=== PATIENT | female | born 1980 | race Caucasian/White ===

== ENCOUNTER → 2016-03-18 | Outpatient (CLI) | payer BC ==
[~2016-03-18] MED LIST: LEVO75TA PO; PRENTAB26 PO
[2016-03-18 17:59] LABS: GTGD 50 Grams
[2016-03-18 18:21] LABS: THYROID STIMULATING HORMONE 1.13 uIu/ml (0.300-4.500)
== END | disposition home or self-care (01) ==
LOC: C.LAB1850 15:37
PROVIDERS: ATTEND Obstetrics & Gynecology
DX: O99.280 Endocrine, nutritional and metabolic diseases complicating pregnancy, unspecified trimester (principal); O09.512 Supervision of elderly primigravida, second trimester

== ENCOUNTER → 2016-04-18 | Outpatient (CLI) | payer BC ==
[2016-04-18 18:42] LABS: THYROID STIMULATING HORMONE 0.873 uIu/ml (0.300-4.500)
== END | disposition home or self-care (01) ==
LOC: C.LABPVFM 15:54
PROVIDERS: ATTEND Internal Medicine Endocrinology, Diabetes & Metabolism
DX: O99.280 Endocrine, nutritional and metabolic diseases complicating pregnancy, unspecified trimester (principal)

== ENCOUNTER → 2016-04-29 | Outpatient (CLI) | payer BC ==
[2016-04-29 17:21] LABS: HEMATOCRIT 34.1 % (37-47)
[2016-04-29 18:02] LABS: URINE APPEARANCE CLEAR (CLEAR); URINE BILIRUBIN NEG (NEG); URINE COLOR YELLOW; URINE NITRITE NEG (NEG); URINE PH 6.5 (4.5-7.5); UROBILINOGEN NEG (NEG)
[2016-04-29 18:08] LABS: MANUAL MICROSCOPIC REQUIRED? NO; REVIEW REQ? NO
[2016-04-29 19:37] LABS: GTGD 50 Grams
== END | disposition home or self-care (01) ==
LOC: C.LAB1850 15:31
PROVIDERS: ATTEND Obstetrics & Gynecology
DX: O09.513 Supervision of elderly primigravida, third trimester (principal)

== ENCOUNTER → 2016-05-15 | Outpatient (CLI) | payer BC ==
[2016-05-15 17:15] LABS: THYROID STIMULATING HORMONE 1.12 uIu/ml (0.300-4.500)
== END | disposition home or self-care (01) ==
LOC: C.LAB1850 16:02
PROVIDERS: ATTEND Physician Assistant
DX: O99.280 Endocrine, nutritional and metabolic diseases complicating pregnancy, unspecified trimester (principal)

== ENCOUNTER → 2016-06-14 | Outpatient (CLI) | payer BC ==
[2016-06-14 17:34] LABS: THYROID STIMULATING HORMONE 1.3 uIu/ml (0.300-4.500)
== END | disposition home or self-care (01) ==
LOC: C.LAB1850 15:50
PROVIDERS: ATTEND Physician Assistant
DX: O99.280 Endocrine, nutritional and metabolic diseases complicating pregnancy, unspecified trimester (principal); Z3A.00 Weeks of gestation of pregnancy not specified

== ENCOUNTER 2016-07-12 17:02 | Outpatient (CLI) | payer BC ==
[~2016-07-12] VITALS: Ht 167.6 cm; Wt 93.0 kg
[2016-07-12] MEDS ORDERED: PRENTAB26 PO (17:46)
[2016-07-12] MEDS ORDERED: LEVO75TA PO (17:46)
[2016-07-12 17:47] VITALS: Ht 167.6 cm; Wt 93.0 kg
== END 2016-07-12 18:17 | disposition home or self-care (01) ==
LOC: C.OPB 17:02 → C.LD 17:02 → C.OPB 18:17
PROVIDERS: ATTEND Obstetrics & Gynecology
DX: O16.3 Unspecified maternal hypertension, third trimester (principal); Z3A.38 38 weeks gestation of pregnancy

== ENCOUNTER 2016-07-16 16:52 | Outpatient (CLI) | payer BC ==
[~2016-07-16] VITALS: Ht 165.1 cm; Wt 93.0 kg
[2016-07-16 18:43] VITALS: Ht 165.1 cm; Wt 93.0 kg
== END 2016-07-16 19:05 | disposition home or self-care (01) ==
LOC: C.OPB 16:52 → C.LD 16:54 → C.OPB 19:05
PROVIDERS: ATTEND Obstetrics & Gynecology
DX: O16.3 Unspecified maternal hypertension, third trimester (principal); O09.513 Supervision of elderly primigravida, third trimester; Z3A.38 38 weeks gestation of pregnancy

== ENCOUNTER 2016-07-17 07:50 | Inpatient (IN) | payer BC ==
[~2016-07-17] VITALS: Ht 165.1 cm; Wt 93.0 kg
[2016-07-17] MEDS ORDERED: LACTATED RINGER'S 1000ML 1,000 ML IV SCH (08:12)
[2016-07-17] MEDS ORDERED: LACTATED RINGER'S 1000ML 1,000 ML IV PRN (08:12)
[2016-07-17] MEDS ORDERED: LACTATED RINGER'S 1000ML 500 ML IV PRN (08:12)
[2016-07-17] MEDS ORDERED: OXYTOCIN 30 UNITS/500ML NSS IV PRN ×2 (08:15→17:15)
--- NOTE | 2016-07-17 08:33 | Medical Student: [facility] ---
Med Student History & Physical Date of Service July 17, 2016. Chief Complaint Induction History of Present Illness Source: patient Pt is a 35F who presents for induction of labor due to gestational HTN. She is currently 38-4 weeks GA with REINIER 07/27/16 by LMP. Her has only been complicated with GH and AMA. After having a high BP of 142/92 and 142/98 and trace edema without other sx during OB clinic on 07/16/16, pt was admitted to L&D the following evening to have a nickerson bulb inserted at 5:00PM. The bulb fell out this morning. Currently the patient is not experiencing contractions, but feels mild irritability of the uterus. She has not experienced loss of fluid and had some spotting due to the procedure last night. Blood type: A+, rubella: immune, GBS: +, VRDL/RPR: nonreactive, HBV: neg OB History Patient has no hx of RECRUITER History Menarche: 12, LMP: 10/20/16 Last pap: 09/2014 WNL No hx of abnormal pap Past Medical History Hypothyroidism currently controlled on levothyroxine Past Surgical History [place] teeth and ankle surgery Family History Hx of hypercholesterolemia, breast cancer (maternal great aunt). Social History Smoking Status: Never Smoker Smokeless Tobacco Use: No Alcohol Use: none Drug Use: none Marital Status: Housing status: lives with significant other Allergies Coded Allergies: No Known Allergies (Unverified , 07/12/16) Home Medications Levothyroxine Sodium (Synthroid), 75 MCG PO DAILY Multivit/Min/Iron/Fol Ac/Pren ( Vitamin), 1 TAB PO DAILY Review of Systems Constitutional: No chills, No fever, No sweats Respiratory: No cough, No shortness of breath, No wheezing Cardiovascular: No chest pain, No edema, No palpitations Abdomen: No nausea, No vomiting Genitourinary - Female: No dysuria, No urinary frequency Pt did note a minor headache, pain 1-2/10. Thinks it began last night in the hospital when her "blood pressure dropped a bit". Physical Exam Vital Signs: BP: 130/84, HR: 112, RR: 18 General Appearance: WD/WN, no apparent distress Head: normocephalic, atraumatic Respiratory/Chest: chest non-tender, lungs clear, normal breath sounds Cardiovascular: regular rate, rhythm, no gallop, no murmur Abdomen / GI: non tender Extremities: normal inspection, no calf tenderness, + pedal edema (trace) Skin: normal color, warm/dry Cervix exam as performed by Dr. De La Cruz at 8AM was 2-3 cm, 80% effaced, station: -2. Monitoring External Monitor: FHR: 155, moderate variability, accels present, no decels, category 1. Tocodynamometer: Irregular Assessment and Plan A: Pt is a 35F 38-4 weeks GA who presents for induction of labor who is currently not in acute distress. heart tracing category 1, BP currently at 130/84 with trace pedal edema. P: Plan is to continue monitoring with external heart monitor, advise patient with regards to pain management during delivery. Will administer Pitocin to begin regular contractions and will watch for SROM, and if needed perform AROM.
[2016-07-17 08:44] VITALS: Ht 165.1 cm; Wt 93.0 kg
[2016-07-17 08:49] LABS: MEAN CELL VOLUME 84.3 fL (80-100); MEAN CORPUSCULAR HEMOGLOBIN 27.4 pg (25-34); MEAN CORPUSCULAR HGB CONC 32.5 g/dl (32-36); MEAN PLATELET VOLUME 10.5 fL (7.4-10.4); PLATELET COUNT 236 K/uL (130-400); RED BLOOD COUNT 4.27 M/uL (4.2-5.4); WHITE BLOOD COUNT 7.74 K/uL (4.8-10.8)
[2016-07-17] MEDS ORDERED: PENICILLIN G POTASSIUM IV 3 MU in DEXTROSE 5% 100ML 100 ML IV PRN (09:00)
[2016-07-17] MEDS ORDERED: PENICILLIN G POTASSIUM IV 6 MU in DEXTROSE 5% 250ML 250 ML IV ONE (09:00)
[2016-07-17 09:09] LABS: ALT/SGPT 21 U/L (12-78); AST/SGOT 19 U/L (15-37)
[2016-07-17 09:11] LABS: ALKALINE PHOSPHATASE 165 U/L (45-117)
[2016-07-17] MEDS ORDERED: ONDANSETRON INJ 2 MG/ML 2 ML VIAL IV STA (13:18)
[2016-07-17] MEDS ORDERED: OXYCODONE/ACETAMINOPHEN 5-325 TAB PO PRN (17:15)
[2016-07-17] MEDS ORDERED: HYDROCORTISONE ACETATE 25 MG SUPP PR PRN (17:15)
[2016-07-17] MEDS ORDERED: BENZOCAINE 20% AER SPR 82.5 GM CAN EXT PRN (17:15)
[2016-07-17] MEDS ORDERED: LANOLIN OINT EXT PRN ×2 (17:15)
[2016-07-17] MEDS ORDERED: SUPERCREAM 0.870 % 15GM JAR EXT PRN (17:15)
--- NOTE | 2016-07-17 18:47 | Medical Student: [facility] ---
Medical Student Delivery Note Pt is a 35 yo EDC 07/27/16 for an induction due to GH and AMA. Pt had a nickerson bulb placed on 07/16/16 which fell out on 07/17/16. Blood type: A+, rubella: immune, GBS: +, VRDL/RPR: nonreactive, HBV: neg. Cervix upon admission at 8AM was 2-3 cm, 80% effaced, station: -2, performed by Dr. De La Cruz. heart tracing was category 1. Pt declined epidural, and Pitocin was started. Viable baby F, 8,9. Cord clamped and cut and cord blood samples obtained. Placenta delivered spontaneously. Inspection of perineum showed midline second degree laceration that was repaired with one 3-0 Vicryl suture. EBL 300cc. Sponge and need count correct.
[2016-07-17 19:40] VITALS: BP 132/77; PULSE 89; TEMP 37.5; O2SAT 96
--- NOTE | 2016-07-17 20:13 | DELIVERY SUMMARY ---
DATE OF OPERATION: 07/17/2016 PREDELIVERY DIAGNOSES: 1. A 35-year-old G1, P0 at 38 weeks 4 days. 2. Induction of labor secondary to gestational hypertension. 3. Hypothyroidism in . 4. Group B strep positive. 5. Advanced maternal age. 6. Hyperinsulinism. POSTDELIVERY DIAGNOSES: Same. PROCEDURE: Spontaneous vaginal delivery and repair of second degree peroneal laceration. FINDINGS: Viable female with Apgars 8 and 9, weight pending and second degree peroneal laceration. SURGEON: Dr. Arcos. ANESTHESIA: None. DESCRIPTION OF DELIVERY: The patient progressed to complete without anesthesia. She then began to push. She spontaneously vaginally delivered a viable female from the left occiput anterior position. The head delivered followed by the anterior then the posterior shoulder followed by the body. Nuchal cord x1 was noted and delivered through. The baby was placed on mother's abdomen and a spontaneous cry was heard. The cord was doubly clamped and cut. A cord segment was obtained for cord gases. Cord blood was obtained. The placenta was spontaneously delivered intact with a 3-vessel cord. The uterus and vagina were swept of all clots and debris. The bladder was drained with a red rubber catheter for a small amount of urine. The Pitocin was started and the uterus became firm. The cervix, vagina and perineum were inspected and a second degree perineal laceration was noted. Rectal exam was performed to ensure no laceration in the rectum and the anal sphincter was intact. Lidocaine 1% was infused 10 mL in the laceration for pain control and the laceration was repaired in standard fashion with 3-0 Vicryl on a CT1 needle and a second rectal exam was performed and no stitches were in the rectal mucosa. Excellent hemostasis was observed. All instrument, needle and sponge counts were correct x2 at the conclusion of the delivery. The patient and the baby tolerated the delivery well. I attest to the content of the Intraoperative Record and any orders documented therein. Any exceptio ns are noted below.
[2016-07-17] MEDS: DOCUSATE SODIUM 100 MG CAP PO SCH (20:15)
[2016-07-17] MEDS: IBUPROFEN 600 MG TAB PO PRN (21:42)
[2016-07-18 00:30] VITALS: BP 99/55; PULSE 89; TEMP 37.1; O2SAT 96
[2016-07-18 04:45] VITALS: BP 126/77; PULSE 71; TEMP 37.1; O2SAT 97
[2016-07-18] MEDS: IBUPROFEN 600 MG TAB PO PRN ×3 (05:00→19:42)
--- NOTE | 2016-07-18 06:50 | Progress Note ---
Subjective July 18, 2016. Subjective conversation w/ patient, physical exam, lab review Ambulation: ambulating normally Voiding: no voiding problems Passing Gas: No Diet Tolerance: Regular Diet Lochia: Moderate Feeding Type: Breast Feeding Pain: cramp, improves with med Comment: Patient was seen at the bedside. No acute event overnight. Review of Systems Constitutional: No fever Respiratory: No cough, No shortness of breath Cardiac: No chest pain Breast: No breast lump Abdomen: No nausea, No pain, No vomiting Female : No dysuria, No urinary frequency Denies headache Objective Vital Signs Date Time Temp Pulse Resp B/P Pulse Ox O2 Delivery O2 Flow Rate FiO2 07/18/16 04:45 37.1 71 18 126/77 97 Room Air 07/18/16 00:30 Room Air 07/18/16 00:30 37.1 89 18 99/55 96 Room Air 07/17/16 19:40 Room Air 07/17/16 19:40 37.5 89 18 132/77 96 Room Air Physical Exam General Appearance: WELL-APPEARING, WD/WN, NO APPARENT DISTRESS Respiratory/Chest: chest non-tender, lungs clear, normal breath sounds, no respiratory distress Cardiovascular: regular rate, rhythm Abdomen: normal bowel sounds, non tender, soft Fundus: Firm, Relation to Umbilicus (about 1-2cm below U) Extremities: non-tender, no calf tenderness, + pedal edema (trace b/l lower ext ) Laboratory Results Last 24 Hours Test 07/17/16 08:40 07/18/16 06:33 White Blood Count 7.74 K/uL Red Blood Count 4.27 M/uL Hemoglobin 11.7 g/dL Hematocrit 36.0 % Mean Corpuscular Volume 84.3 fL Mean Corpuscular Hemoglobin 27.4 pg Mean Corpuscular Hemoglobin Concent 32.5 g/dl RDW Standard Deviation 42.5 fL RDW Coefficient of Variation 13.9 % Platelet Count 236 K/uL Mean Platelet Volume 10.5 fL Creatinine 0.80 mg/dl Est Creatinine Clear Calc Drug Dose 110.6 ml/min Estimated GFR () 110.7 Estimated GFR (Non- 95.5 Total Bilirubin 0.5 mg/dl Direct Bilirubin < 0.1 mg/dl Aspartate Amino Transf (AST/SGOT) 19 U/L Alanine Aminotransferase (ALT/SGPT) 21 U/L Alkaline Phosphatase 165 U/L Total Protein 6.2 gm/dl Albumin 2.6 gm/dl Medications Current Inpatient Medications Medications (Trade) Dose Ordered Sig/Tae Route Start Time Stop Time Status Last Admin Dose Admin Lactated Ringer's 1,000 ml @ 125 mls/hr Q8H IV 07/17/16 08:12 07/19/16 08:11 07/17/16 09:06 125 MLS/HR Lactated Ringer's (Lr 1000ml) 500 ml @ 999 mls/hr Q31M PRN IV 07/17/16 08:12 08/16/16 08:11 Levothyroxine Sodium (Synthroid Tab) 75 mcg DAILYBB PO 07/18/16 07:30 08/17/16 07:29 Oxytocin (Pitocin IV) 30 units UD PRN IV 07/17/16 17:15 08/16/16 17:14 Benzocaine (Dermoplast Aero Spr) 1 appln PRN PRN EXT 07/17/16 17:15 08/16/16 17:14 Cocaine HCl (Supercream 0.870% Cr) BID PRN EXT 07/17/16 17:15 07/31/16 17:14 07/17/16 20:14 15 GM Hydrocortisone Acetate (Anusol Hc Supp) [address] 07/17/16 17:15 08/16/16 17:14 Lanolin (Lanolin Oint) PRN PRN EXT 07/17/16 17:15 08/16/16 17:14 07/18/16 05:00 1 TUBE Ibuprofen (Motrin Tab) 600 mg Q4H PRN PO 07/17/16 17:15 08/16/16 17:14 07/18/16 05:00 600 MG Oxycodone/ Acetaminophen (Percocet 5-325mg Tab) 1 tab Q4H PRN PO 07/17/16 17:15 07/31/16 17:14 Bisacodyl (Dulcolax Tab) 5 mg 20 PO 07/18/16 20:00 07/18/16 20:01 Docusate Sodium (coLACE CAP) 100 mg BID PO 07/17/16 20:00 08/16/16 19:59 07/17/16 20:15 100 MG Assessment and Plan Post- Day#: 1 Continue Routine Care: A/P: This is a 35 y/o female, , s/p normal vaginal delivery. She is ambulating and clinically stable. Plan: - Vitals signs are reviewed and WNL (Tmax 37.5 ) - Last Hgb is 11.7 - Blood type A+, GBS positive, Rubella Immune - Routine care - Encourage ambulation, monitor and control pain with medication as needed , continue with regular diet as tolerated and monitor lochia - Stool softeners and sitz bath recommended - Encourage breast feeding and educate about breast feeding Resident Physician Supervision Note: I was present with Dr. Armijo during the history and exam. I discussed the case with the resident and agree with the findings and plan as documented in the note. Any exceptions or clarifications are listed here: PPD#1 doing well. Continue care. Documented By: Deepa Arcos
[2016-07-18 06:53] LABS: HEMATOCRIT 30.7 % (37-47)
--- NOTE | 2016-07-18 06:54 | Medical Student: [facility] ---
Med Student [employer] Progress Nt Date of Service July 18, 2016. Subjective conversation w/ patient, physical exam, chart review Ambulation: ambulating normally Voiding: no voiding problems Passing Gas: No Diet Tolerance: Regular Diet Lochia: Moderate Feeding Type: Breast Feeding Pain: Improves with medication Notes: Pt is a 35 yo F, , PPD s/p NVD Blood type A+, GBS+, Rubella immune Review of Systems Constitutional: No chills, No fever Respiratory: No cough, No shortness of breath Cardiac: No chest pain, No palpitations Abdomen: No nausea, No vomiting Female : No dysuria, No urinary frequency Objective Vital Signs Date Time Temp Pulse Resp B/P Pulse Ox O2 Delivery O2 Flow Rate FiO2 07/18/16 04:45 37.1 71 18 126/77 97 Room Air 07/18/16 00:30 Room Air 07/18/16 00:30 37.1 89 18 99/55 96 Room Air 07/17/16 19:40 Room Air 07/17/16 19:40 37.5 89 18 132/77 96 Room Air Physical Exam General Appearance: WELL-APPEARING, WD/WN Respiratory/Chest: chest non-tender, lungs clear, normal breath sounds Cardiovascular: regular rate, rhythm, no gallop, no murmur Abdomen: non tender, soft Fundus: Firm, Relation to Umbilicus (1 cm below) Extremities: non-tender, + pedal edema (trace) Laboratory Results Last 24 Hours Test 07/17/16 08:40 07/18/16 06:33 White Blood Count 7.74 K/uL Red Blood Count 4.27 M/uL Hemoglobin 11.7 g/dL Hematocrit 36.0 % Mean Corpuscular Volume 84.3 fL Mean Corpuscular Hemoglobin 27.4 pg Mean Corpuscular Hemoglobin Concent 32.5 g/dl RDW Standard Deviation 42.5 fL RDW Coefficient of Variation 13.9 % Platelet Count 236 K/uL Mean Platelet Volume 10.5 fL Creatinine 0.80 mg/dl Est Creatinine Clear Calc Drug Dose 110.6 ml/min Estimated GFR () 110.7 Estimated GFR (Non- 95.5 Total Bilirubin 0.5 mg/dl Direct Bilirubin < 0.1 mg/dl Aspartate Amino Transf (AST/SGOT) 19 U/L Alanine Aminotransferase (ALT/SGPT) 21 U/L Alkaline Phosphatase 165 U/L Total Protein 6.2 gm/dl Albumin 2.6 gm/dl Assessment and Plan Post- Day Number: 1 Continue Routine Care: Pt is a 35 yo F , PPD #1 s/p NVD doing well We want to do routine care, encourage ambulatio nand breast feeding and continue pain control with rx.
[2016-07-18 07:50] VITALS: BP 122/79; PULSE 80; TEMP 36.5; O2SAT 97
[2016-07-18] MEDS: LEVOTHYROXINE 75 MCG TAB PO SCH (08:18)
[2016-07-18] MEDS: DOCUSATE SODIUM 100 MG CAP PO SCH ×2 (08:18→19:42)
[2016-07-18 11:40] VITALS: BP 124/74; PULSE 79; TEMP 36.6; O2SAT 98
[2016-07-18 15:30] VITALS: BP 131/74; PULSE 87; TEMP 36.5
[2016-07-18] MEDS ORDERED: BISACODYL 5 MG TABEC PO SCH (20:00)
[2016-07-18 23:30] VITALS: BP 117/76; PULSE 89; TEMP 37.2
--- NOTE | 2016-07-19 06:23 | Discharge Instructions ---
Discharge Instructions Date of Service July 18, 2016. Admission Reason for Admission: Induction Discharge Discharge Diagnosis / Problem: s/p vaginal delivery Discharge Goals Goal(s): Routine recovery after delivery Medications Continue Dispensed Medications: supercream, dermaplast, tucks, lansinoh Activity Recommendations Activity Limitations: as noted below . Instructions / Follow-Up Instructions / Follow-Up ACTIVITY RECOMMENDATIONS: * Gradual return to full activity over the next 2-3 weeks. * No lifting - nothing heavier than baby over the next 2-3 weeks. * Do not engage in vigorous exercise, sexual activity or sports until cleared by your physician. * Do not drive or operate any motorized equipment until cleared by your physician. * You may shower/bathe daily. MEDICATIONS: For discomfort or pain, you may use Acetaminophen (Tylenol), Ibuprofen (Advil), or Naproxen (Aleve) following the package directions. For constipation you may use Colace following the package directions. BREAST CARE: If you are not breast feeding: * Wear a supportive bra 24 hours a day for one to two weeks. * Avoid stimulating your breasts and nipples as much as possible during the first few weeks after delivery. * When taking a shower, have the warm water hit your back, not breasts. * When your breasts feel full, apply ice packs. Usually three to four times a day helps ease the discomfort. * Take a mild pain medication (Tylenol / Motrin) when you are uncomfortable. If breast feeding: * Use breast milk to lubricate nipples. Lansinoh cream may be used for sore nipples. You do not need to remove cream prior to breast feeding. If using a different brand of cream, check the label for directions regarding removal of cream prior to nursing. * Wear a supportive bra. * If having problems with breasts or breast feeding, call a instructional systems design consultant or your health care provider. EPISIOTOMY CARE: After delivery, if you have an episiotomy (stitches), the following steps will ease discomfort and aid healing. * For the first 24 hours after delivery, place ice packs next to your episiotomy to help reduce swelling. * After the first 24 hour-period, sitz baths, either portable or in the tub, are suggested. A shower with a shower arm sprayed over the episiotomy may be comforting. * Tiana care should be done after each voiding and bowel movement. Squirt warm water from a plastic bottle over the perineum (region of the body between the anus and urinary opening) and pat dry. * Use Dermoplast to ease discomfort. Shake container. [place] directly over the episiotomy. Place a Tucks on a clean sanitary pad next to your episiotomy. SPECIAL CARE INSTRUCTIONS: When you are discharged from the hospital, it is important for you to follow the instructions listed below: * During the first week at home, you should be able to care for yourself and your baby. In addition, the usual light household activities are encouraged. * Limit your activities to the way you feel. Do not try to clean the house or move furniture. Be sensible. * If you actively engage in sports and have done so up until the time of your delivery, you may resume these activities as soon as you feel able. This may take up to one month or even longer. Use good judgment. * Continue to take your vitamins for at least six weeks after the of your baby. * Your diet need not be limited unless you were on a special diet before your delivery. Breast-feeding mothers need around 2500 calories per day and at least 64-80 ounces of fluid per day (8 to 10 glasses). * You should eat foods from the four major food groups. Crash diets or fad diets are to be avoided. Eating lean meats, fresh fruits and vegetables, low-fat dairy products, high fiber foods and a regular exercise program, will help you get back to your pre- weight without putting your health at risk. * Constipation is sometimes a problem after delivery. Take a mild laxative as needed. If breast feeding, Milk of Magnesia is acceptable to use. You may use a suppository or Fleets enema if no episiotomy. * A daily shower or tub bath is suggested. Be sure to thoroughly and gently dry the perineum. * A bloody vaginal discharge will usually continue until around four weeks post . A small amount of bleeding may continue for as long as six weeks. Vaginal discharge changes from the bright red bleeding after delivery to pink then brownish and finally yellowish-pink before becoming white and disappearing. * Bleeding may increase with activity. Your first period may come in 4-8 weeks. If you are breast feeding, your period may be delayed even longer. * [place] (sex) can begin whenever both you and your partner feel comfortable and do not have any form of genital infection. It is recommended that you wait at least six weeks for internal and external healing to occur. If you have questions, please talk to your health care practitioner. A condom should be used to prevent infection and . * Foreplay, gentle intercourse and lubrication is very important the first several times to prevent pain. A water-based lubricant such as K-Y jelly or Astroglide may be used. * If you have RH negative blood and your baby is RH positive, you will receive RHOGAM by injection prior to discharge. The nurse will give you a card to keep with you that has the date and place that you received RHOGAM after delivery. * During your care, you had a Rubella screen done to check for the presence of rubella antibodies in your blood. If your test was negative, you will receive a Rubella vaccine prior to discharge. This vaccine may cause a fever, soreness at the injection site and flu-like symptoms. If these symptoms persist, notify your health care practitioner. is not advised for one month after a Rubella vaccine. * Verbalizes understanding of car seat law as reviewed with patient nursing. * Car Seat hand-out given and reviewed with patient by nursing. * Shaken baby information reviewed with patient by nursing. Call you doctor if: * Heavy bleeding (saturating several pads an hour) or passing clots the size of your fist. * A fever >101 degrees F (38.3 degrees C) on two occasions four hours apart and /or chills. * Unusual pain in the pelvic or vaginal areas. * "Baby Blues" lasting longer than two weeks. If you have any questions or concerns, call your health care practitioner at . FOLLOW UP VISIT: * Please call the office at to schedule a 6 week examination. It is important you keep this appointment. It is important for you to make arrangements for either yearly or twice yearly check-ups thereafter. Current Hospital Diet Patient's current hospital diet: Regular OB Diet Discharge Diet Recommended Diet: Regular Diet Pending Studies Studies pending at discharge: no Medical Emergencies . Who to Call and When: Medical Emergencies: If at any time you feel your situation is an emergency, please call 911 immediately. . Non-Emergent Contact Non-Emergency issues call your: Russian Language Professor Call Non-Emergent contact if: you have a fever, temperature is above 101 . . "Provider Documentation" section prepared by Zay Armijo. . VTE Core Measure Inpt VTE Proph given/why not?: Treatment not indicated
--- NOTE | 2016-07-19 06:23 | Progress Note ---
Subjective July 19, 2016. Subjective conversation w/ patient, physical exam, lab review Ambulation: ambulating normally Voiding: no voiding problems Passing Gas: Yes Diet Tolerance: Regular Diet Lochia: Small Feeding Type: Breast Feeding Pain: 2/10, improves with med Comment: Patient was seen at the bedside. No acute event overnight. Review of Systems Constitutional: No fever Respiratory: No cough, No shortness of breath Cardiac: No chest pain Breast: No breast lump Abdomen: No nausea, No pain, No vomiting Female : No dysuria, No urinary frequency Patient was seen at the bedside. No acute event overnight. Objective Vital Signs Date Time Temp Pulse Resp B/P Pulse Ox O2 Delivery O2 Flow Rate FiO2 07/18/16 23:30 37.2 89 18 117/76 07/18/16 23:30 Room Air 07/18/16 15:30 Room Air 07/18/16 15:30 36.5 87 20 131/74 Room Air 07/18/16 11:40 36.6 79 16 124/74 98 Room Air 07/18/16 07:50 36.5 80 16 122/79 97 Room Air 07/18/16 07:50 Room Air Physical Exam General Appearance: WELL-APPEARING, WD/WN, NO APPARENT DISTRESS Respiratory/Chest: chest non-tender, lungs clear, normal breath sounds, no respiratory distress Cardiovascular: regular rate, rhythm Abdomen: normal bowel sounds, non tender, soft Fundus: Firm, Relation to Umbilicus (about 1cm below U) Extremities: non-tender, no pedal edema, no calf tenderness Laboratory Results Last 24 Hours Test 07/18/16 06:33 Hemoglobin 10.1 g/dL Hematocrit 30.7 % Medications Current Inpatient Medications Medications (Trade) Dose Ordered Sig/Tae Route Start Time Stop Time Status Last Admin Dose Admin Lactated Ringer's 1,000 ml @ 125 mls/hr Q8H IV 07/17/16 08:12 07/19/16 08:11 07/17/16 09:06 125 MLS/HR Lactated Ringer's (Lr 1000ml) 500 ml @ 999 mls/hr Q31M PRN IV 07/17/16 08:12 08/16/16 08:11 Levothyroxine Sodium (Synthroid Tab) 75 mcg DAILYBB PO 07/18/16 07:30 08/17/16 07:29 07/18/16 08:18 75 MCG Oxytocin (Pitocin IV) 30 units UD PRN IV 07/17/16 17:15 08/16/16 17:14 Benzocaine (Dermoplast Aero Spr) 1 appln PRN PRN EXT 07/17/16 17:15 08/16/16 17:14 Cocaine HCl (Supercream 0.870% Cr) BID PRN EXT 07/17/16 17:15 07/31/16 17:14 07/17/16 20:14 15 GM Hydrocortisone Acetate (Anusol Hc Supp) 25 mg BID PRN [place] 07/17/16 17:15 08/16/16 17:14 Lanolin (Lanolin Oint) PRN PRN EXT 07/17/16 17:15 08/16/16 17:14 07/18/16 05:00 1 TUBE Ibuprofen (Motrin Tab) 600 mg Q4H PRN PO 07/17/16 17:15 08/16/16 17:14 07/18/16 19:42 600 MG Oxycodone/ Acetaminophen (Percocet 5-325mg Tab) 1 tab Q4H PRN PO 07/17/16 17:15 07/31/16 17:14 Docusate Sodium (coLACE CAP) 100 mg BID PO 07/17/16 20:00 08/16/16 19:59 07/18/16 19:42 100 MG Assessment and Plan Post- Day#: 2 Continue Routine Care: A/P: This is a 35 y/o female, , s/p normal vaginal delivery. She is ambulating and clinically stable to discharge. - Vital signs are reviewed and WNL (Tmax 37.2 ) - Last Hgb 10.1 - Blood type A+, GBS positive, Rubella Immune - No signs of depression. - Routine care - Discussed resting, feeding, pain control, mastitis, control, follow up in 6 weeks and reasons to call sooner, if necessary. - Continue with pain medication as needed, and continue vitamins. - Encourage breast feeding and educate about breast feeding - Patient understands and keen for home. - Plan to discharge home Resident Physician Supervision Note: I interviewed and examined the patient. Discussed with Dr. Armijo and agree with findings and plan as documented in the note. Any exceptions or clarifications are listed here: [None] Documented By: Cely Colby
[2016-07-19 07:11] VITALS: BP 126/64; PULSE 78; TEMP 37.2; O2SAT 98
[2016-07-19] MEDS: LEVOTHYROXINE 75 MCG TAB PO SCH (08:09)
[2016-07-19] MEDS: DOCUSATE SODIUM 100 MG CAP PO SCH (08:09)
[2016-07-19] MEDS: IBUPROFEN 600 MG TAB PO PRN ×2 (08:10→12:14)
[2016-07-19 15:00] VITALS: BP_DIAS 64; PULSE 78; TEMP 37.2
== END 2016-07-19 15:00 | disposition home or self-care (01) | DRG 775 ==
LOC: C.LD 07:50 → C.OBG 20:25
PROVIDERS: ADMIT Obstetrics & Gynecology; ATTEND Obstetrics & Gynecology
PROC: 10E0XZZ Delivery of Products of Conception, External Approach (ICD-10-PCS; principal; 2016-07-17)
PROC: 0U7C7ZZ Dilation of Cervix, Via Natural or Artificial Opening (ICD-10-PCS; principal; 2016-07-17)
PROC: 0KQM0ZZ Repair Perineum Muscle, Open Approach (ICD-10-PCS; principal; 2016-07-17)
PROC: 3E033VJ Introduction of Other Hormone into Peripheral Vein, Percutaneous Approach (ICD-10-PCS; principal; 2016-07-17)
DX: O13.4 Gestational [pregnancy-induced] hypertension without significant proteinuria, complicating childbirth (principal); Z37.0 Single live birth; O99.824 Streptococcus B carrier state complicating childbirth; O70.1 Second degree perineal laceration during delivery; O69.81X0 Labor and delivery complicated by cord around neck, without compression, not applicable or unspecified; O99.284 Endocrine, nutritional and metabolic diseases complicating childbirth; E03.9 Hypothyroidism, unspecified; O26.893 Other specified pregnancy related conditions, third trimester; E16.1 Other hypoglycemia; Z3A.38 38 weeks gestation of pregnancy

== ENCOUNTER → 2016-10-04 | Outpatient (CLI) | payer BC ==
[2016-10-04 18:32] LABS: THYROID STIMULATING HORMONE 1.15 uIu/ml (0.300-4.500)
== END | disposition home or self-care (01) ==
LOC: C.LABPVFM 11:13
PROVIDERS: ATTEND Physician Assistant
DX: O99.280 Endocrine, nutritional and metabolic diseases complicating pregnancy, unspecified trimester (principal)

== ENCOUNTER → 2017-04-14 | Outpatient (CLI) | payer BC | END | disposition home or self-care (01) | LOC: C.LABPVFM 10:41 | PROVIDERS: ATTEND Physician Assistant | DX: O99.280 Endocrine, nutritional and metabolic diseases complicating pregnancy, unspecified trimester (principal); Z3A.00 Weeks of gestation of pregnancy not specified ==

== ENCOUNTER → 2017-09-15 | Outpatient (CLI) | payer BC | END | disposition home or self-care (01) | LOC: C.LABPVFM 15:49 | PROVIDERS: ATTEND Physician Assistant | DX: E03.9 Hypothyroidism, unspecified (principal) ==

== ENCOUNTER 2019-07-21 08:14 | Inpatient (IN) ==
[2019-07-21] MEDS ORDERED: LACTATED RINGER'S 1,000 ML IV PRN (08:51)
[2019-07-21] MEDS ORDERED: OXYTOCIN 30 UNITS/500 ML BAG IV PRN ×3 (08:51→16:40)
[2019-07-21] MEDS ORDERED: PENICILLIN G POTASSIUM 3 MU in DEXTROSE 5% 100 ML IV PRN (08:51)
[2019-07-21] MEDS ORDERED: PENICILLIN G POTASSIUM 6 MU in DEXTROSE 5% 250 ML IV ONE (09:00)
--- NOTE | 2019-07-21 09:08 | History & Physical Report ---
Date of Service July 21, 2019 Assessment & Plan (1) : 38 yo @ 39.5 weeks here for IOL complicated by AMA, hypothyroidism, IUGR (5th percentile @21 weeks), and GBS+ status - admit, IV, labs - augmentation as needed Labs: GBS +, A+ SVE: 2cm, 50%, -2, soft, posterior Hypothyroidism - continue levothyroxine 75 mcg GBS + status - Penicillin 6 million units and 3 million units every 4 hours Fetus - FHTS: category 1 - EFW: 7-8 lbs - continue monitoring - no current contractions History of Present Illness Chief Complaint: induction of labor Primary Care Provider: Ibeth Corrigan PA-C Shana Davidson is a 38 yo here for induction of labor. is complicated by hypothyroidism, AMA, IUGR, GBS+, prior H/O gHTN. She is on Levothyroxin 75 mcg and this dose has not changed during . She has a prior history of gHTN but has not had elevated blood pressures during this . She has not had any contractions, no loss of fluid, no bleeding, no loss of mucus or increased discharge. No fevers, sick contacts, or recent travel. Medications: 81 mg ASA, Levothyroxine 75 mcg, PNV Allergies: denies allergies to medications or latex Social: has support at home, has a 3 year old girl, plan is to breastfeed Allergies Allergy/AdvReac Type Severity Reaction Status Date / Time No Known Drug Allergies Allergy Unknown Verified 07/21/19 09:49 Home Medications Home Medications Medication Instructions Recorded Confirmed Type prenat.vits,casey,wdw-uviw-fplhf 1 tab PO DAILY 01/15/19 07/21/19 History levothyroxine 75 mcg tablet 75 mcg PO .TAKE 1 TABLET BY MOUTH 03/01/19 07/21/19 Rx EVERY MORNING WITH WATER 30 MINUTES BEFORE EATING #90 tab aspirin 81 mg tablet,delayed 81 mg PO DAILY 07/20/19 07/21/19 History release Patient History Medical History Encounter for anatomic survey History of varicella Hypothyroid Yeast infection Surgical History History of ankle surgery [place] teeth removed Family History Father Hypertension Aunt Breast cancer Other Dyslipidemia Social History Preferred Language: Mexican Communication Ability: Effective Beliefs That Will Affect Care: None marital status: marital status details: Anson Davidson (32) [phone] Current Living Situation: Family Current Living Situation Comment: lives with spouse and daughter, no pets current occupational status: employed current occupation: teacher- [employer] Other Information That Helps Us Care for You: No Feels Safe at Home: Yes Safety Concerns: Feels Safe At This Time Smoking Status: Never smoker Hx Alcohol Use: No Hx Substance Use: No OB History 3 year old female born at 38 weeks via vaginal delivery complicated by gHTN Review of Systems Denies fever, chills, sweats Denies shortness of breath, difficulty breathing, chest pain, palpitations, chest pressure. Denies dysuria. Denies headache, double vision, RUQ pain Physical Exam Physical Exam: General: Alert, oriented. No acute distress. Cardiac: Regular rate and rhythm, no murmurs/rubs/gallops. Respiratory: Clear to auscultation anterior and posteriorly, no wheezes/rales/rhonchi. No increased work of breathing. Symmetrical chest rise. No respiratory distress. Abdomen: gravid, vertex, + bowel sounds Lower Extremities: No lower extremity edema or swelling. No deep calf pain. Ambrose's negative bilaterally. Tocometry: not currently nancy Results & Data Vital Signs (Past 12 Hours) Vital Signs Temp Pulse Resp BP 07/21/19 08:35 36.8 C 101 H 20 130/79 07/21/19 08:25 101 H 130/79 Monitoring External Monitor Category 1 tracing - normal baseline 150 - no early decelerations, no late decelerations, no variable decelerations Tocometry - not currently nancy Resident Activity Tracking Resident Involvement: Resident Care Provided Care Provided: OB Delivery
[2019-07-21 09:37] LABS: Hematocrit (blood only) 35.1 % (37-47); Hemoglobin 11.9 g/dL (12.0-16.0); Mean Corpuscular Hemoglobin 29.5 pg (25-34); Mean Corpuscular Volume 87.1 fL (80-100); Mean Platelet Volume 10.7 fL (7.4-10.4); Platelet Count 217 K/uL (130-400); RDW Coefficient of Variation 13.9 % (11.5-14.5); RDW Standard Deviation 43.8 fL (36.4-46.3); Red Blood Count 4.03 M/uL (4.2-5.4); White Blood Count 7.08 K/uL (4.8-10.8)
[2019-07-21 09:46] LABS: Mean Corpuscular Hgb Conc 33.9 g/dL (32-36)
--- NOTE | 2019-07-21 12:08 | Labor Progress Brief Note ---
Date of Service July 21, 2019 Cx 3cm. AROM CTX mild. FHR cat 1 Results & Data Vital Signs (Past 12 Hours) Vital Signs Temp Pulse Resp BP 07/21/19 11:48 98.2 F 72 18 135/77 07/21/19 10:34 98 H 111/72 07/21/19 08:35 98.2 F 101 H 20 130/79 07/21/19 08:25 101 H 130/79 Coding Level of Care Code None
--- NOTE | 2019-07-21 16:33 | Delivery Summary ---
Vaginal Delivery Summary Date of Service July 21, 2019 Spontaneous vaginal delivery of live vigorous patient did not have epidural and delivered after pushing only a few contractions in occiput anterior position mouth and then nares suctioned with bulb no nuchal cord gentle traction no excessive force used. Baby live and vigorous fluid clear second-degree tear repaired with 3-0 Vicryl placenta removed with gentle traction estimated blood loss 200 mL sponge and instrument counts correct
[2019-07-21] MEDS ORDERED: BENZOCAINE 20% AER SPR 82.5 GM CAN EXT PRN (16:40)
[2019-07-21] MEDS ORDERED: SUPERCREAM 0.870% 15 GM JAR EXT PRN (16:40)
[2019-07-21] MEDS ORDERED: OXYCODONE/ACETAMINOPHEN 5mg/325mg TAB PO PRN (16:40)
[2019-07-21] MEDS ORDERED: bisacodyL 10 MG SUPP PR PRN (16:40)
[2019-07-21] MEDS ORDERED: DIPHTHERIA/TETANUS/PERTUSSIS 0.5 ML SYR/VIAL IM ONE (16:40)
[2019-07-21] MEDS ORDERED: ACETAMINOPHEN 325 MG TAB PO PRN (16:40)
[2019-07-21] MEDS ORDERED: HYDROCORTISONE ACETATE 25 MG SUPP PR PRN (16:40)
[2019-07-21] MEDS: DOCUSATE SODIUM 100 MG CAP PO SCH (20:44)
[2019-07-21] MEDS: IBUPROFEN 600 MG TAB PO PRN (20:45)
[2019-07-22] MEDS: IBUPROFEN 600 MG TAB PO PRN ×2 (03:52→17:14)
--- NOTE | 2019-07-22 05:21 | Obstetrical Progress Note ---
Date of Service July 22, 2019 Assessment & Plan (1) : 38 yo s/p VD @ 39.5 weeks complicated by AMA, hypothyroidism, suspected IUGR, and GBS+ status Hypothyroidism - continue levothyroxine 75 mcg GBS + status - treated with Penicillin - PPD# 1 - GBS +, Blood Type A+ - Feels well today. Eating well, voiding well, ambulating well. - Pain well controlled. - Routine post care - After discharge will have [address] Serna. Admission and Anticipated Discharge Date Admission Date: July 21, 2019 Supervising Physician Co-Signing Physician Notes Resident Physician Supervision Note: I was present with Dr. Perry during the history and exam. I discussed the case with the resident and agree with the findings and plan as documented in the note. Any exceptions or clarifications are listed here: [None] Documented By: Adam Serna MD, FACOG Subjective Doing well this morning she is ambulating, voiding, eating a regular diet without nausea this morning. bleeding is described as a heavy period. She is and states that it is going, "well". Pain is 3/10. No questions this morning. Review of Systems Review of Systems: Denies fever, chills, sweats Denies shortness of breath, difficulty breathing, chest pain, palpitations, chest pressure. Denies dysuria. Denies headache, double vision, RUQ pain Physical Exam Physical Exam: General: Alert, oriented. No acute distress. Cardiac: Regular rate and rhythm, no murmurs/rubs/gallops. Respiratory: Clear to auscultation anterior and posteriorly, no wheezes/rales/rhonchi. No increased work of breathing. Symmetrical chest rise. No respiratory distress. Abdomen: Soft, nontender, nondistended. Bowel sounds present. Uterus: Uterine fundus firm, palpable 1 cm below umbilicus. Lower Extremities: No lower extremity edema or swelling. No deep calf pain. Ambrose's negative bilaterally. Results & Data ([facility]) Vital Signs (Past 12 Hours) Vital Signs Temp Pulse Pulse Resp BP BP Pulse Ox 07/22/19 03:40 36.8 C 91 H 18 126/68 98 07/21/19 23:25 37.0 C 71 18 135/81 98 07/21/19 19:45 36.8 C 79 18 132/79 99 07/21/19 18:30 36.8 C 98 H 18 147/74 H 96 07/21/19 18:04 37.3 C 81 20 132/66 07/21/19 17:49 71 130/69 07/21/19 17:34 76 20 126/69 07/21/19 17:19 66 16 134/67 Resident Activity Tracking Resident Involvement: Resident Care Provided Care Provided: OB Delivery
[2019-07-22] MEDS: LEVOTHYROXINE SODIUM 75 MCG TABLET PO SCH (06:27)
[2019-07-22 06:37] LABS: Hemoglobin 11.6 g/dL (12.0-16.0); Mean Corpuscular Hemoglobin 29.6 pg (25-34); Mean Corpuscular Hgb Conc 34.1 g/dL (32-36); Mean Corpuscular Volume 86.7 fL (80-100); Mean Platelet Volume 10.7 fL (7.4-10.4); Platelet Count 186 K/uL (130-400); RDW Coefficient of Variation 14.1 % (11.5-14.5); RDW Standard Deviation 44.1 fL (36.4-46.3); Red Blood Count 3.92 M/uL (4.2-5.4); White Blood Count 12.31 K/uL (4.8-10.8)
[2019-07-22] MEDS: DOCUSATE SODIUM 100 MG CAP PO SCH ×2 (08:10→20:48)
[2019-07-22] MEDS: PRENATAL VITAMIN 1 TAB PO SCH (08:10)
[2019-07-22] MEDS ORDERED: NON-FORMULARY MEDICATION (Prenat.Vits,Cal,Min-Iron-Folic 1 TAB) PO SCH (09:00)
[2019-07-22] MEDS ORDERED: bisacodyL 5 MG TABEC PO SCH (20:00)
--- NOTE | 2019-07-23 05:32 | Obstetrical Progress Note ---
Date of Service July 23, 2019 Assessment & Plan (1) : 38 yo s/p VD @ 39.5 weeks complicated by AMA, hypothyroidism, suspected IUGR, and GBS+ status Hypothyroidism - continue levothyroxine 75 mcg GBS + status - treated with Penicillin - PPD# 1 - GBS +, Blood Type A+ - Feels well today. Eating well, voiding well, ambulating well. - Pain well controlled. - Routine post care - After discharge will have [address] Serna. Admission and Anticipated Discharge Date Admission Date: July 21, 2019 Supervising Physician Co-Signing Physician Notes Resident Physician Supervision Note: I was present with Dr. Figueroa during the history and exam. I discussed the case with the resident and agree with the findings and plan as documented in the note. Any exceptions or clarifications are listed here: [None] Documented By: Zaida Wiley MD, FACOG Subjective Doing well this morning she is ambulating, voiding, eating a regular diet without nausea this morning. bleeding is described as a heavy period. She is and states that it is going, "well". Pain is 3/10. No questions this morning. Review of Systems Review of Systems: Denies fever, chills, sweats Denies shortness of breath, difficulty breathing, chest pain, palpitations, chest pressure. Denies dysuria. Denies headache, double vision, RUQ pain Physical Exam Physical Exam: General: Alert, oriented. No acute distress. Cardiac: Regular rate and rhythm, no murmurs/rubs/gallops. Respiratory: Clear to auscultation anterior and posteriorly, no wheezes/rales/rhonchi. No increased work of breathing. Symmetrical chest rise. No respiratory distress. Abdomen: Soft, nontender, nondistended. Bowel sounds present. Uterus: Uterine fundus firm, palpable 1 cm below umbilicus. Lower Extremities: No lower extremity edema or swelling. No deep calf pain. Ambrose's negative bilaterally. Results & Data ([facility]) Vital Signs (Past 12 Hours) Vital Signs Temp Pulse Resp BP Pulse Ox 07/22/19 23:35 36.9 C 69 16 116/72 97 Resident Activity Tracking Resident Involvement: Resident Care Provided Care Provided: OB Delivery
[2019-07-23] MEDS: LEVOTHYROXINE SODIUM 75 MCG TABLET PO SCH (06:27)
[2019-07-23 06:35] LABS: Hematocrit (blood only) 34.1 % (37-47); Hemoglobin 11.5 g/dL (12.0-16.0)
[2019-07-23] MEDS: DOCUSATE SODIUM 100 MG CAP PO SCH (08:07)
[2019-07-23] MEDS: PRENATAL VITAMIN 1 TAB PO SCH (08:07)
== END 2019-07-23 13:20 | disposition home or self-care (01) | DRG 807 ==
LOC: 4S1 08:14 → 4S2 18:30